=== PATIENT | female | born 1955 ===

== ENCOUNTER → 2021-12-25 | Outpatient (CLI) | payer MEDICARE, BC | LOC: LAB 13:04 → LAB SHORT 13:04 | DX: R30.0 Dysuria (principal) | CPT/HCPCS: 87077; 87086; 87186 ==

== ENCOUNTER → 2022-01-21 | Outpatient (CLI) | payer MEDICARE, BC | LOC: LAB SHORT 10:00 → LAB 10:00 | DX: R30.0 Dysuria (principal) | CPT/HCPCS: 87077; 87086; 87186 ==

== ENCOUNTER → 2022-05-30 | Outpatient (CLI) | payer MEDICARE, BC | LOC: LAB SHORT 10:30 → LAB 10:30 | DX: R30.0 Dysuria (principal) | CPT/HCPCS: 87077; 87086; 87186 ==

== ENCOUNTER → 2022-07-12 | Outpatient (CLI) | payer MEDICARE, BC | END | disposition home or self-care (01) | LOC: LAB SHORT 12:28 → LAB 12:28 | DX: M54.50 Low back pain, unspecified (principal); R30.0 Dysuria | CPT/HCPCS: 87077; 87086; 87186 ==

== ENCOUNTER → 2022-10-23 | Outpatient (CLI) | payer MEDICARE, BC | LOC: LAB SHORT 09:20 → LAB 09:20 | DX: R30.0 Dysuria (principal) | CPT/HCPCS: 87077; 87086; 87186 ==

== ENCOUNTER → 2023-04-06 | Outpatient (CLI) | payer MEDICARE, BC | LOC: LAB 08:40 → LAB SHORT 08:40 | DX: R30.0 Dysuria (principal); R35.0 Frequency of micturition; R31.9 Hematuria, unspecified | CPT/HCPCS: 87077; 87086; 87186 ==

== ENCOUNTER → 2023-08-22 | Outpatient (CLI) | payer MEDICARE, BC | END | disposition home or self-care (01) | LOC: LAB SHORT 08:50 → LAB 08:50 | DX: N39.0 Urinary tract infection, site not specified (principal) | CPT/HCPCS: 87077; 87086; 87186 ==

== ENCOUNTER → 2023-10-07 | Outpatient (CLI) | payer MEDICARE, BC | LOC: LAB SHORT 09:55 → LAB 09:55 | DX: R30.0 Dysuria (principal) | CPT/HCPCS: 87077; 87086; 87186 ==

== ENCOUNTER → 2023-11-22 | Outpatient (CLI) | payer MEDICARE, BC | LOC: LAB SHORT 18:20 → LAB 18:20 | DX: R30.0 Dysuria (principal) | CPT/HCPCS: 87077; 87086; 87186 ==

== ENCOUNTER → 2024-01-28 | Outpatient (CLI) | payer MEDICARE, BC | LOC: LAB SHORT 17:51 → LAB 17:51 | DX: R30.0 Dysuria (principal) | CPT/HCPCS: 87077; 87086; 87186 ==

== ENCOUNTER → 2024-02-26 | Outpatient (CLI) | payer MEDICARE, BC | LOC: LAB 19:32 → LAB SHORT 19:32 | DX: R30.0 Dysuria (principal) | CPT/HCPCS: 87077; 87086; 87186 ==

== ENCOUNTER → 2024-03-22 | Outpatient (CLI) | payer MEDICARE, BC | LOC: LAB 17:51 → LAB SHORT 17:51 | DX: R30.0 Dysuria (principal) | CPT/HCPCS: 87077; 87086; 87186 ==

== ENCOUNTER → 2024-04-09 | Outpatient (CLI) | payer MEDICARE, BC | LOC: LAB SHORT 13:18 → LAB 13:18 | DX: R30.0 Dysuria (principal); R35.0 Frequency of micturition | CPT/HCPCS: 87077; 87086; 87186 ==

== ENCOUNTER → 2024-05-01 | Outpatient (CLI) | payer MEDICARE, BC | LOC: LAB 17:20 → LAB SHORT 17:20 | DX: R30.0 Dysuria (principal) | CPT/HCPCS: 87077; 87086; 87186 ==

== ENCOUNTER 2024-06-18 10:51 | Emergency (ER) | payer MEDICARE, BC ==
[~2024-06-18] VITALS: Ht 165.1 cm; Wt 64.0 kg
[2024-06-18 11:22] LABS: BASOPHILS ABSOLUTE AUTO 0.01 K/mm3 (0.00-0.23); BASOPHILS PERCENT AUTO 0 % (0-2); EOSINOPHILS ABSOLUTE AUTO 0.01 K/mm3 (0.00-0.68); EOSINOPHILS PERCENT AUTO 0 % (0-6); Hemoglobin 12.9 g/dL (11.5-16.0); IMMATURE GRAN ABSOLUTE AUTO 0.04 K/mm3 (0.00-0.10); IMMATURE GRAN PERCENT AUTO 1 % (0-1); LYMPHOCYTES ABSOLUTE AUTO 1.08 K/mm3 (0.84-5.20); LYMPHOCYTES PERCENT AUTO 12 % (21-46); MONOCYTES ABSOLUTE AUTO 0.81 K/mm3 (0.16-1.47); MONOCYTES PERCENT AUTO 9 % (4-13); Mean Corpuscular HGB 30.6 pg (26.0-34.0); Mean Corpuscular HGB Conc 33.9 g/dL (31.5-36.5); Mean Corpuscular Volume 90 fL (80-100); Mean Platelet Volume 11.5 fL (9.1-12.4); NEUTROPHILS ABSOLUTE AUTO 6.79 K/mm3 (1.96-9.15); NEUTROPHILS PERCENT AUTO 78 % (41-73); Platelet Count 130 K/mm3 (150-400); RDW Coefficient Variation 14.5 % (11.7-14.2); RDW Standard Deviation 47.9 fL (35.1-46.3); Red Blood Cell Count 4.22 M/mm3 (3.80-5.20); White Blood Cell Count 8.74 K/mm3 (4.00-11.30)
[2024-06-18 11:26] LABS: Source, Urine Clean Catch
[2024-06-18 11:29] LABS: Appearance, Urine Cloudy (Clear); Bilirubin, Urine Neg (Neg); Blood, Urine 3+ (Neg); Color, Urine Yellow (P-Yellow); Glucose Qualitative, Urine Neg (Neg); Ketones, Urine Neg (Neg); Leukocyte Esterase, Urine 3+ (Neg); Nitrite, Urine Pos (Neg); Protein, Urine 3+ (Neg); Urobilinogen, Urine NORM (Normal)
[2024-06-18] MEDS ORDERED: NS 1,000 ML IV SCH ×2 (11:30→13:45)
[2024-06-18] MEDS ORDERED: FOSAMAX70 MG PO (11:32)
[2024-06-18 11:42] LABS: Albumin, Blood 3.2 g/dL (3.4-5.0); Albumin/Globulin Ratio 1.1 (0.8-1.8); Bilirubin, Total 0.9 mg/dL (0.1-1.0); Bun/Creatinine Ratio 17.6 (12.0-20.0); Calcium, Blood 8.6 mg/dL (8.5-10.1); Creatinine, Blood 1.02 mg/dL (0.40-1.00); Potassium, Blood 3.7 mmol/L (3.5-5.5); Total Protein, Blood 6.2 g/dL (6.4-8.2)
[2024-06-18 11:42] LABS: White Blood Cells, Urine TNTC /hpf (0-5)
[2024-06-18 11:43] LABS: Bacteria Many /hpf; Squamous Epithelial Cells Few /hpf (Few)
[2024-06-18] MEDS ORDERED: Ketorolac Tromethamine 30mg Vial IV ONE (12:05)
[2024-06-18] MEDS ORDERED: CefTRIAXone Sodium 1,000 MG in NS 100 ML IV ONE (12:30)
[2024-06-18] MEDS ORDERED: FentaNYL Citrate 50 MCG/ML 2 ML Injection IV ONE (14:50)
[2024-06-18 15:35] VITALS: BP 97/66
[2024-06-19] MEDS ORDERED: CefTRIAXone Sodium 1,000 MG in NS 100 ML IV SCH (09:00)
== END 2024-06-18 16:21 | disposition short-term general hospital (02) ==
LOC: ER 10:51
PROVIDERS: Student in an Organized Health Care Education/Training Program
DX: N13.6 Pyonephrosis (principal)
CPT/HCPCS: 36415; 74177; 80053; 81001; 82150; 83605; 85025; 87040; 87077; 87086; 87186; 96361; 96365-59; 96375; 99285-25; J0696; J1885; J3010; J7030; Q9967

== ENCOUNTER → 2024-09-09 | Outpatient (CLI) | payer MEDICARE, BC ==
[~2024-09-09] MED LIST: FOSAMAX70 MG PO
== END | disposition home or self-care (01) ==
LOC: LAB SHORT 13:15 → LAB 13:15
DX: N39.0 Urinary tract infection, site not specified (principal); R35.0 Frequency of micturition
CPT/HCPCS: 87077; 87086; 87186